=== PATIENT | male | born 1965 | race Caucasian/White ===

== ENCOUNTER 2017-10-03 22:56 | Emergency (ER) | payer OTHER, SELFPAY ==
[2017-10-03] MEDS ORDERED: Cyclobenzaprine 10 MG TAB ONE (23:21)
[2017-10-03] MEDS ORDERED: Acetaminophen/Codeine 30-300mg Tablet ONE (23:21)
== END 2017-10-03 23:33 | disposition home or self-care (01) ==
LOC: NAV ERS 22:56
DX: S16.1XXA Strain of muscle, fascia and tendon at neck level, initial encounter (principal); Z71.6 Tobacco abuse counseling; F17.210 Nicotine dependence, cigarettes, uncomplicated; Z86.19 Personal history of other infectious and parasitic diseases; X50.0XXA Overexertion from strenuous movement or load, initial encounter; Y99.0 Civilian activity done for income or pay
CPT/HCPCS: 99406

== ENCOUNTER 2018-06-07 15:25 | Emergency (ER) | payer SELFPAY ==
[2018-06-07] MEDS ORDERED: Lidocaine 1% (PF) 30 ML VIAL ONE (15:33)
== END 2018-06-07 15:45 | disposition home or self-care (01) ==
LOC: NAV ERS 15:25
DX: S60.455A Superficial foreign body of left ring finger, initial encounter (principal); F17.210 Nicotine dependence, cigarettes, uncomplicated; W26.8XXA Contact with other sharp object(s), not elsewhere classified, initial encounter
CPT/HCPCS: 99282; J2001

== ENCOUNTER 2019-01-22 22:19 | Emergency (ER) | payer SELFPAY ==
[2019-01-22 22:35] LABS: #Basophils 0.3 thou/uL (0.0-0.2); #Eosinphils 0.1 thou/uL (0.0-0.7); #Lymphocytes 1.3 thou/uL (1.20-3.40); #Monocytes 0.8 thou/uL (0.11-0.59); #Neutrophils 16.9 thou/uL (1.40-6.50); %Basophils 1.3 % (0.0-1.0); %Eosinophils 0.7 % (0.0-10.0); %Lymphocytes 6.5 % (21.0-51.0); %Monocytes 4.3 % (0.0-10.0); %Neutrophils 87.3 % (42.0-75.0); Hemoglobin 15.2 g/dL (14.0-18.0); Mean Corpuscular HGB CONC 32.4 g/dL (32.0-36.0); Mean Corpuscular Hemoglobin 29.8 pg (27.0-31.0); Mean Corpuscular Volume 92.2 fL (78.0-98.0); Mean Platelet Volume 7.3 fL (7.4-10.4); Platelet Count 281 thou/uL (130-400); RBC Distribution Width 12.3 % (11.5-14.5); Red Blood Cell (RBC) Count 5.11 mill/uL (4.70-6.10); White Blood Cell (WBC) Count 19.4 thou/uL (4.8-10.8)
[2019-01-22] MEDS ORDERED: Lorazepam 2 MG/ML VIAL ONE (22:44)
[2019-01-22] MEDS ORDERED: Sodium Chloride 0.9% 500 ML ONE (22:46)
--- NOTE | 2019-01-22 22:48 | RAD ---
XR Chest 1 View Portable HISTORY: Chest pain and shortness of breath. COMPARISON: 04/05/2014 study. FINDINGS: Heart size and mediastinum are within normal limits pulmonary vessels appear slightly engor ged. Interstitial markings are also minimally increased. IMPRESSION: Findings suggesting some mild edema change.
[2019-01-22 22:56] LABS: ALT (SGPT) 31 U/L (8-55); AST (SGOT) 27 U/L (5-34); Albumin 4.3 g/dL (3.5-5.0); Alcohol 132 mg/dL (Less than 10); Alkaline Phosphatase 84 U/L (40-110); Anion Gap 19 mmol/L (10-20); BUN (Urea Nitrogen) 11 mg/dL (8.4-25.7); Bilirubin, Total 0.4 mg/dL (0.2-1.2); CK (CPK) 163 U/L (30-200); Calc. Creatinine Clearance 0 mL/min (70-130); Calcium 9.1 mg/dL (7.8-10.44); Carbon Dioxide 19 mmol/L (22-29); Chloride 108 mmol/L (98-107); Estimated GFR-MDRD Greater than 90; Globulin 2.7 g/dL (2.4-3.5); Glucose 89 mg/dL (70-105); Magnesium 2.1 mg/dL (1.6-2.6); Potassium 4.4 mmol/L (3.5-5.1); Sodium 142 mmol/L (136-145)
[2019-01-22] MEDS ORDERED: Aspirin Chewable 81 MG TAB ONE (23:10)
== END 2019-01-22 23:24 | disposition short-term general hospital (02) ==
LOC: NAV ERS 22:19
DX: R07.9 Chest pain, unspecified (principal); F10.129 Alcohol abuse with intoxication, unspecified; F14.10 Cocaine abuse, uncomplicated; R45.1 Restlessness and agitation; F17.210 Nicotine dependence, cigarettes, uncomplicated
CPT/HCPCS: 36415; 71045; 80053; 80307; 82550; 83735; 85025; 93005; 94760; 96361; 96374; J2060; J7050

== ENCOUNTER 2019-08-01 09:59 | Emergency (ER) | payer OTHER, SELFPAY | END 2019-08-01 10:25 | disposition home or self-care (01) | LOC: NAV ERS 09:59 | DX: S61.011A Laceration without foreign body of right thumb without damage to nail, initial encounter (principal); I10 Essential (primary) hypertension; F17.210 Nicotine dependence, cigarettes, uncomplicated; X58.XXXA Exposure to other specified factors, initial encounter | CPT/HCPCS: 12001 ==